=== PATIENT | female | born 1990 | race Caucasian/White ===

== ENCOUNTER 2017-01-25 13:15 | Observation (INO) | payer OTHER ==
[~2017-01-25] VITALS: Ht 170.2 cm; Wt 114.3 kg
[~2017-01-25 13:15] MED LIST: ACETAMINOPHEN325 MG PO; DERMOPLAST SPRA56 GM TOP; LANSINOH7 GM TOP; PERCOCET 5-3251 EACH PO; PRENATAL 1+1)(P1 TAB PO; TUCKS1 EACH TOP
== END 2017-01-25 15:42 | disposition disaster alternative care site (69) ==
LOC: GOBS 13:15
PROVIDERS: ADMIT Obstetrics & Gynecology
DX: O47.1 False labor at or after 37 completed weeks of gestation (principal); Z3A.38 38 weeks gestation of pregnancy

== ENCOUNTER 2017-01-27 05:39 | Inpatient (IN) | payer OTHER ==
[~2017-01-27] VITALS: Ht 170.2 cm; Wt 113.2 kg
--- NOTE | ~2017-01-27 | OR ---
PATIENT'S NAME: JOHN MERRITT [facility] AGE: 26 Y [address] ROOM: [place] [id number] LOCATION: [facility] ADMIT DATE: 01/27/2017 OR/Procedure Report DISCHARGE DATE: FAMILY PHYSICIAN: PHYSICIAN, NO ATTENDING PHYSICIAN: LARA CANCINO SURGEON: Lara Cancino MD OREMAN: None. DATE OF PROCEDURE: 01/27/2017 PROCEDURE PERFORMED: Spontaneous vaginal delivery over intact perineum. PRE-DELIVERY DIAGNOSES: 1. Intrauterine at 39 weeks and 0 day. 2. History of melanoma. 3. Obesity. POST-DELIVERY DIAGNOSES: 1. Intrauterine at 39 weeks and 0 day. 2. History of melanoma. 3. Obesity. FINDINGS: Viable male infant with score of 8 and 9, weight of 8 pounds 10 ounces. Intact placenta with 3-vessel cord. Right labial laceration and first-degree perineal laceration. Normal-appearing cervix and the remainder of vagina. ESTIMATED BLOOD LOSS: 300 mL. ANTIBIOTICS: None indicated. SPECIMENS: Cord blood. COMPLICATIONS: None. DISPOSITION: The patient and infant to remain in the room. INDICATION FOR PROCEDURE: The patient is a 26-year-old -0-1-2, who presented on January 27, 2017, for an elective induction of labor at 39 weeks and 0 day. had been complicated by history of melanoma as well as obesity. She was 3 cm dilated on admission and AROM was performed with clear fluid. She progressed normally through labor and began expulsive efforts. DESCRIPTION OF PROCEDURE: The patient was placed in a dorsal lithotomy position in [facility]. With maternal expulsive efforts, head was brought down to the perineum. head was then delivered and was allowed to PATIENT'S NAME: JOHN MERRITT [facility] AGE: 26 Y [address] ROOM: [place] [address] LOCATION: [facility] ADMIT DATE: 01/27/2017 OR/Procedure Report DISCHARGE DATE: FAMILY PHYSICIAN: PHYSICIAN, NO ATTENDING PHYSICIAN: LARA CANCINO restitute. Gentle downward traction was placed on the shoulders followed by upward traction and the shoulders were delivered followed by the remainder of the body. was placed on the mother's chest. Cord was clamped and cut. Cord blood was obtained. IV Pitocin was started per protocol. Gentle downward traction was placed on the cord and placenta was delivered spontaneously intact. Cervix, vagina, and perineum were inspected for lacerations with the findings of a first-degree perineal laceration and a right labial laceration, which were both repaired with 3-0 Vicryl and then were hemostatic. The patient was having minimal free flow at the completion of the procedure. She remained in the room with the infant. MD VIKTORIYA TOMAS/sindy /[id number] d: [birth year] t: 01/28/17 1853, OPERATIVE SUMMARY
[2017-01-27 07:12] LABS: BASOPHIL % 0.1 %; EOSINOPHIL % 0.4 %; HEMATOCRIT 32.2 % (33.0-46.0); HEMOGLOBIN 10.8 g/dL (11.0-15.0); IMMATURE GRANULOCYTE % 0.4 %; LYMPHOCYTE # 1.6 K/uL (0.8-4.0); LYMPHOCYTE % 21.9 %; MCH 26.5 pg (27.0-34.0); MCHC 33.5 gm/dL (32.0-36.5); MCV 79.1 fl (83.0-98.0); MONOCYTE # 0.9 K/uL (0.0-1.0); MPV 11.2 fl (9.4-12.4); NEUTROPHIL # (ANC) 4.5 K/uL (1.8-7.8); NEUTROPHIL % 64.2 %; NRBC % 0 /100WBC (0-0.00); PLATELET COUNT 269 K/uL (150-450); RBC 4.07 M/uL (3.50-5.00); RDW-CV 15.1 % (11.9-14.6); WBC 7.1 K/uL (4.0-11.0)
--- NOTE | 2017-01-27 17:10 | NUR ---
Last VS: T:98.4 P:116 R: 16 BP: 114/72 Pain rating: . Last pain med: None given Medicated at: Effective: Breasts: SOFT, Nipples: NO PROBLEM Fundus:, FIRM -1, Lochia: SM, Epis/Perineum: APPROXIMATED, , Voiding well: BALLARD DC'D AT 1454 NO VOID Significant event: .NEEDS TIDY
[2017-01-28 04:08] LABS: BASOPHIL % 0.1 %; EOSINOPHIL # 0.2 K/uL (0.0-0.5); EOSINOPHIL % 1.8 %; HEMATOCRIT 31.3 % (33.0-46.0); HEMOGLOBIN 10.4 g/dL (11.0-15.0); IMMATURE GRANULOCYTE % 0.4 %; LYMPHOCYTE % 18.6 %; MCH 26.9 pg (27.0-34.0); MCHC 33.2 gm/dL (32.0-36.5); MCV 81.1 fl (83.0-98.0); MONOCYTE # 1.3 K/uL (0.0-1.0); MONOCYTE % 11.6 %; MPV 10.9 fl (9.4-12.4); NEUTROPHIL # (ANC) 7.4 K/uL (1.8-7.8); NEUTROPHIL % 67.5 %; NRBC % 0 /100WBC (0-0.00); RBC 3.86 M/uL (3.50-5.00); RDW-CV 15.1 % (11.9-14.6)
[2017-01-28 04:10] LABS: PLATELET COUNT 209 K/uL (150-450)
--- NOTE | 2017-01-28 04:25 | NUR ---
VSS, fundus firm, midline, small flow, IV SL, 2 Perc at 0200, Motrin at 2300
[2017-01-28] MEDS ORDERED: DERMOPLAST SPRA56 GM TOP (15:29)
[2017-01-28] MEDS ORDERED: MOTRIN800 MG PO (15:29)
[2017-01-28] MEDS ORDERED: PERCOCET 5-3251 EACH PO (15:29)
[2017-01-28] MEDS ORDERED: ZOFRAN4 MG PO (15:30)
--- NOTE | 2017-01-28 17:24 | NUR ---
Met with patient and significant other today. Introduced myself and explained my role with the CM department. Informed them of the 30 days they have to contact insurance. They state they have all necessary items at home for baby. Reviewed signs and symptoms of post depression and left her the material on this. No other needs.
== END 2017-01-28 17:17 | disposition disaster alternative care site (69) | DRG 775 ==
LOC: GOBS 05:39
PROVIDERS: ADMIT Obstetrics & Gynecology
PROC: 0HQ9XZZ Repair Perineum Skin, External Approach (ICD-10-PCS; principal; 2017-01-27)
PROC: 0UQMXZZ Repair Vulva, External Approach (ICD-10-PCS; principal; 2017-01-27)
PROC: 10907ZC Drainage of Amniotic Fluid, Therapeutic from Products of Conception, Via Natural or Artificial Opening (ICD-10-PCS; principal; 2017-01-27)
PROC: 10E0XZZ Delivery of Products of Conception, External Approach (ICD-10-PCS; principal; 2017-01-27)
DX: O99.214 Obesity complicating childbirth (principal); E66.9 Obesity, unspecified; O70.0 First degree perineal laceration during delivery; Z85.820 Personal history of malignant melanoma of skin; Z3A.39 39 weeks gestation of pregnancy; Z37.0 Single live birth
CPT/HCPCS: J2001; J2405; J2590; J3010; J7120; Q0162